=== PATIENT | male | born 1950 | race Caucasian/White ===

== ENCOUNTER → 2016-12-23 | Day surgery (SDC) | payer OTHER ==
--- NOTE | 2016-12-20 15:30 | MH ---
cc: AIDEN PABLO MD, ROHIT K. M.D. CROUCH, EUGENE M. MD DATE OF ADMISSION: 12/23/2016 ADMITTING DIAGNOSIS Herniated nucleus pulposus. HISTORY OF PRESENT ILLNESS This is a 66-year-old male who initially presented to our office on April 15, 2016 for evaluation of low back pain. After he was lifting scuba tanks which weighed about 60 pounds and turned he heard a pop and developed severe pain. He states he had an injection in his back at that time and over a period of time his pain improved but never resolved. He has progressively had increased pain. He has been through pain management and has had injections. He has also tried physical therapy. He has been seen for reevaluation more recently on 12/17/2016, stating that the pain management was not helping as much anymore. He therefore had a follow-up MRI scan which revealed a disc fragment that had extruded out. He also had an EMG and nerve conduction study of his lower extremities and he states that his neurologist informed him that he had nerve damage. He currently states his pain is in the right upper buttocks area radiating into the posterior thigh to the knee. Currently his pain is 2/10 but can go up to 7-8/10. He has also developed weakness in the right leg over the last two months and walks with a limp but has not fallen. He denies any bowel or bladder incontinence. PAST MEDICAL HISTORY Gastroesophageal reflux disease. MEDICATIONS Current medications: He takes Protonix p.o. daily. ALLERGIES TETRACYCLINE. PAST SURGICAL HISTORY None. FAMILY HISTORY His mother is at 90-year-old, had dementia. His father is at [id number]. His sister is at [id number] and had breast cancer. He has another sister who is [id number]. SOCIAL HISTORY He is a manager reimbursement. He is . He has two children. He occasionally smokes cigarettes about a half pack per day for 20 years. He drinks 0-2 drinks of alcohol daily. REVIEW OF SYSTEMS CONSTITUTIONAL: Denies any fever or chills. EYES, EARS, NOSE AND THROAT: No pharyngitis, exudates or bloody drainage from his nose. CARDIOVASCULAR: Denies chest pain or palpitations. RESPIRATORY: No cough or shortness of breath. GENITOURINARY: No dysuria or hematuria. MUSCULOSKELETAL: Positive for low back pain and leg pain with weakness in the leg. INTEGUMENTARY: No rashes or pruritus. NEUROLOGIC: No difficulty with speech or memory. GASTROINTESTINAL: No nausea, vomiting or abdominal pain. PSYCHIATRIC: Denies anxiety or depression symptoms. ENDOCRINE: No polyuria or polydipsia. HEMATOLOGIC: No bruising or bleeding tendencies. PHYSICAL EXAMINATION HEAD: Normocephalic, atraumatic. NECK: Supple. No carotid bruits heard on auscultation. LUNGS: Clear to auscultation bilaterally. HEART: Regular rate and rhythm. Normal S1, S2. ABDOMEN: Soft, nontender. Positive bowel sounds. SKIN: No cyanosis or erythema. MUSCULOSKELETAL: He has 5/5 strength in the lower extremities except his right hamstring is 4/5. He ambulates without any assistive devices but has an obvious limp because of weakness in the right leg. NEUROLOGIC: He is awake, alert and oriented. Cranial nerves II through XII are grossly intact. Speech is fluent. Comprehension is good. Left patella and right Achilles reflexes are diminished, otherwise his reflexes are 2+ in the lower extremities. DATA REVIEW Reviewed an MRI of the lumbar spine from November 08, 2016 which reveals significant L4-L5 disc degeneration with a grade I spondylolisthesis along with disc protrusion and facet arthropathy with disc herniation superiorly migrated. The herniated disc fragment is more recent and not seen previously on the right side of the L4 vertebral body. There is also L3-L4 disc protrusion noted. IMPRESSION A 66-year-old male with a chronic history of low back pain with worsening right L3 and L4 radiculopathy with subjective weakness from an L4-L5 large disc herniation extending to the right side superiorly migrated fragment along with degenerative disc disease and a grade I spondylolisthesis and facet arthropathy. He has failed conservative treatment measures including physical therapy and pain management and his symptoms continued to progress. PLAN We have discussed the treatment options in detail with the patient and he has failed conservative measures consisting of physical therapy and pain management and he is electing to proceed with surgical intervention. We have discussed a microdiscectomy versus a lumbar interbody fusion with pedicle screw fixation and the difference in each approach and the recovery time and hospital stay where discussed in great detail. The patient states that he wants to try the microdiscectomy procedure and if he does not obtain the results that he is looking for then pursue a lumbar fusion at a later date. The patient understands the procedure, the risk, benefit, alternative and recovery time. We have discussed the risks involved with surgery include but not limited to bleeding, infection, muscle weakness, voice hoarseness, difficulty swallowing, heart attack, stroke, blood clots, non-fusion, scar tissue formation, among others. The patient states that he would like to proceed with a microdiscectomy surgery stating that he currently does not want to undertake a surgery with a lot of recuperation and restrictions afterwards and therefore he has elected to proceed with a microdiscectomy. Dictated by: Leonel Benjamin PA-C MD STEPHANY Hassan/BT /2:59 PM /3:15 PM
[~2016-12-23] VITALS: Ht 175.3 cm; Wt 76.5 kg
[~2016-12-23] MED LIST: ALPR.5 PO; BUPIVACAINE/EPINEPHRINE 0.5% PF 30 ML VIAL ONE; CIAL5TAB PO; GELFOAM SIZE 100 ONE; HYDROmorphone HCL PF 2 MG/ML VIAL ONE; INSULIN HUMAN REGULAR 1,000 UNITS/10 ML VIAL SQ PRN; LACTATED RINGER'S 1000 ML IV SCH; METOPROLOL TARTRATE 25 MG TAB PO PRN; MIDAZOLAM HCL 2 MG/2 ML VIAL ONE; NEOSTIGMINE 3 MG/3 ML SYR IV ONE; NORC5TAB PO; ONDANSETRON HCL 4 MG/2 ML VIAL IV PUSH ONE; PANT20 PO; PROPOFOL 200 MG/20 ML AMP IV ONE; SODIUM CHLOR 0.9% 1000 ML INJ 1,000 ML IV SCH; SODIUM CHLOR 0.9% 250 ML INJ 250 ML ONE; SODIUM CHLORID 0.9% 500 ML IV SCH; THROMBIN (TOPICAL) 5,000 UNIT VIAL ONE; VANCOMYCIN HCL 1000 MG ON-CALL/NS 250 ML IV SCH; VANCOMYCIN HCL 1000 MG VIAL ONE; ZOLP10TA3 PO; fentaNYL CITRATE 250 MCG/5 ML AMP ONE; methylPREDNISolone ACETATE 40 MG/ML VIAL ONE
[2016-12-23 07:48] VITALS: BP 159/82; PULSE 56; RESP 20; TEMP 98.5; O2SAT 99
--- NOTE | 2016-12-23 10:05 | EKG ---
Date Performed: 12/23/2016 Time Performed: 06:54:27 PTAGE: 66 years EKG: SINUS BRADYCARDIA BORDERLINE ECG NO PREVIOUS TRACING DOCTOR: George Diaz Interpretating Date/Time 12/23/2016 10:03:08
--- NOTE | 2016-12-23 12:12 | PD.OP ---
Ken Ma M.D. Operative Report Date of Surgery: Dec 23, 2016 Preoperative Diagnosis: Intractable low back pain with right L4 and L5 radiculopathy; L3-4 disc herniation with inferior migration Postoperative Diagnosis: Same Procedure: Right L4 hemilaminotomy with L3-4 microdiscectomy; microsurgical technique Anesthesia: Gen. endotracheal by Klever Alvarado Surgeon: Jonah Roberts M.D. Collar Separator(s): Sharonda Bunn Operation and Findings: Following administration of general endotracheal anesthesia, patient received vancomycin 1 g intravenously. Sequential compression devices were placed for DVT prophylaxis. He was then turned in prone position on Faisal frame and the Darrius table and all pressure points adequately padded. The lumbar region was then shaved and prepped with a Betadine and ChloraPrep. Sterile draping undertaken with Ioban. Midline incision overlying the L4 level was then made after infiltrating the skin with 0.5% Marcaine with epinephrine solution. The skin incision was made extending down through the fascia and then using the subperiosteal plane on the right side the muscular attachments to the spinous process and lamina were detached. Intraoperative fluoroscopy was used for level confirmation and further dissection undertaken using microtechnique with microscope magnification. The right L4 lamina was then drilled out and the underlying ligamentum flavum also removed. There was some facet arthropathy noted in the medial portion of facet was also resected and the lateral recess decompressed. Epidural venous stasis which he with the bipolar cautery along with Gelfoam and thrombin and bone wax used at the laminotomy edges for hemostasis. The thecal sac was then gently retracted with a nerve root retractor and an extruded disc fragment was identified which was inferiorly migrated from the L3-4 disc space. Fragments were removed with pituitary forceps and the nerve root impingement along with thecal sac compression decompressed. The area was then copiously irrigated with vancomycin solution. The retractors removed and the muscle fascia proximal using 2-0 Vicryl interrupted stitches. 3-0 Vicryl subcuticular stitches were also placed in an interrupted fashion and planned skin closure was with Mastisol and Steri- Strips. A sterile dressing was then applied and the patient then turned in the supine position and extubated and taken to recovery room in stable condition. There were no intraoperative complications and all sponge and needle count was correct at the end of the procedure. Estimated blood loss about 50 ml. Jonah Roberts MD Dec 23, 2016 12:12
--- NOTE | 2016-12-23 12:35 | RADRPT ---
EXAM DATE/TIME: 12/23/2016 09:28 [facility] COMPARISON: No previous studies available for comparison. INDICATIONS : L4-L5 lumbar laminectomy. Level localization. MEDICAL HISTORY : None. SURGICAL HISTORY : None. ENCOUNTER: Initial ACUITY: 1 day PAIN SCORE: Non-responsive. LOCATION: Lumbar spine. FINDINGS: Single lateral spot fluoroscopic image obtained in the operating room during a procedure demonstrates instruments overlying the posterior elements at L4. CONCLUSION: Instruments overlie the L4 posterior elements. Andrew Bui MD on December 23, 2016 at 12:33 Board Certified Radiologist. This report was verified electronically.
[2016-12-23 13:20] VITALS: BP 150/92; PULSE 66; RESP 16; TEMP 96.5; O2SAT 98
== END | disposition home or self-care (01) ==
LOC: HSDC 06:10
PROVIDERS: ATTEND Neurological Surgery
DX: M51.16 Intervertebral disc disorders with radiculopathy, lumbar region (principal); M43.16 Spondylolisthesis, lumbar region; M46.90 Unspecified inflammatory spondylopathy, site unspecified; K21.9 Gastro-esophageal reflux disease without esophagitis; R94.31 Abnormal electrocardiogram [ECG] [EKG]
CPT/HCPCS: 00630; 63030; 72020; 76000; 93005; J1030; J1170; J2250; J2405; J2710; J3010; J3370; J7050; J7120

== ENCOUNTER → 2017-05-01 | Day surgery (SDC) | payer OTHER ==
[~2017-05-01] VITALS: Ht 175.3 cm; Wt 77.2 kg
[~2017-05-01] MED LIST changes: -BUPIVACAINE/EPINEPHRINE 0.5% PF 30 ML VIAL ONE; +CHLORHEXIDINE GLUCONATE 2 % 1 PACK (2 CLOTHS) TOPICAL PRN; +CYCLOPENTOLATE HCL 1% OPHT SOLN 2 ML BTL ONE; +FLURBIPROFEN 0.03% OPHT SOLN 2.5 ML BTL ONE; -GELFOAM SIZE 100 ONE; -HYDROmorphone HCL PF 2 MG/ML VIAL ONE; +LACTATED RINGER'S 1000 ML IV PRN; -LACTATED RINGER'S 1000 ML IV SCH; +LIAL1.2T PO; +LIDOCAINE HCL 1% PF 30 ML VIAL ONE; +LIDOCAINE HCL 2% JELLY 5 ML SYRINGE ONE; +LIDOCAINE HCL 2% JELLY 5 ML SYRINGE TOPICAL ONE; -MIDAZOLAM HCL 2 MG/2 ML VIAL ONE; -NEOSTIGMINE 3 MG/3 ML SYR IV ONE; -ONDANSETRON HCL 4 MG/2 ML VIAL IV PUSH ONE; +PHENYLEPHRINE HCL 10% OPTH SOLN 5 ML BTL ONE; +POVIDONE IODINE 5% (ANTISEPSIS KIT) 4 APPLICATIONS EACH NARE PRN; +PROPARACAINE HCL 0.5% OPHT SOLN 15 ML BTL LEFT EYE ONE; +PROPARACAINE HCL 0.5% OPHT SOLN 15 ML BTL ONE; -PROPOFOL 200 MG/20 ML AMP IV ONE; +QUES4POW2 PO; -SODIUM CHLOR 0.9% 1000 ML INJ 1,000 ML IV SCH; -SODIUM CHLOR 0.9% 250 ML INJ 250 ML ONE; +SODIUM CHLORID 0.9% 500 ML IV PRN; -SODIUM CHLORID 0.9% 500 ML IV SCH; -THROMBIN (TOPICAL) 5,000 UNIT VIAL ONE; +TOBRAMYCIN/DEXAMETHASONE OPTH OINT 3.5 GM TUBE ONE; +TROPICAMIDE 1% OPHT SOLN 15 ML BTL ONE; -VANCOMYCIN HCL 1000 MG ON-CALL/NS 250 ML IV SCH; -VANCOMYCIN HCL 1000 MG VIAL ONE; -fentaNYL CITRATE 250 MCG/5 ML AMP ONE; -methylPREDNISolone ACETATE 40 MG/ML VIAL ONE
[2017-05-01 07:02] VITALS: BP 152/89; PULSE 62; RESP 18; TEMP 97.8; O2SAT 96
[2017-05-01] MEDS: PHENYLEPHRINE HCL 10% OPTH SOLN 5 ML BTL LEFT EYE SCH ×4 (07:08→07:23)
[2017-05-01] MEDS: FLURBIPROFEN 0.03% OPHT SOLN 2.5 ML BTL LEFT EYE SCH ×4 (07:08→07:23)
[2017-05-01] MEDS: CYCLOPENTOLATE HCL 1% OPHT SOLN 2 ML BTL LEFT EYE SCH ×4 (07:08→07:23)
[2017-05-01] MEDS: TROPICAMIDE 1% OPHT SOLN 15 ML BTL LEFT EYE SCH ×4 (07:08→07:23)
[2017-05-01 09:32] VITALS: BP 139/86; PULSE 62; RESP 16; TEMP 97.1; O2SAT 96
--- NOTE | 2017-05-01 16:00 | MP ---
cc: CLEM GILLIAM M.D. DATE OF SURGERY: 05/01/2017. [facility] NUMBER: [id number] PREOPERATIVE DIAGNOSIS: Visually significant cataract left eye. POSTOPERATIVE DIAGNOSIS: Visually significant cataract left eye. OPERATION: Phacoemulsification with posterior chamber lens implantation, left eye. SURGEON: Clem Gilliam MD ANESTHESIA: Topical with MAC. COMPLICATIONS: None. DESCRIPTION OF THE PROCEDURE IN DETAIL: After informed consent was obtained, the patient was brought into the operative suite and placed on appropriate monitors by the anesthesia service. The patient had been given dilating drops and topical lidocaine gel in the holding area. The patient's operative eye was then prepped and draped in the usual sterile fashion. A wire lid speculum was placed. Further 2% lidocaine was then dropped on the cornea prior to beginning the procedure. A paracentesis incision was made in the peripheral cornea with a 1 mm avani keratome. The anterior chamber was filled with viscoelastic. The anterior chamber was then entered through a stepped, clear corneal incision using a sharp 3 mm avani keratome. A circular tear capsulorrhexis was then made with a bent needle cystitome. Following hydrodissection of the lens nucleus with balance saline, phacoemulsification of the nucleus was performed using a modified chopping technique. The remaining cortex was removed with irrigation/aspiration. The prior two procedures were both performed using the handpieces of the [employer] phaco unit. The capsular bag was then filled with viscoelastic. The intraocular lens was then injected into the capsular bag and positioned. The type of intraocular lens and its power can be found elsewhere in this chart. The remaining viscoelastic was then removed from the anterior chamber with the IA handpiece. The anterior chamber was reformed with balanced saline. The wound was then closed securely with stromal hydration. It was found to be watertight to an intraocular pressure of at least 30 mmHg by palpation. A small amount of balanced salt solution was then removed through the paracentesis site and the intraocular pressure at the end of the case was approximately 20 by palpation. All drapes were then removed. TobraDex ointment was then placed in the eye, which was closed beneath a semi-pressure patch dressing. The patient tolerated this procedure well and left the operating room awake and alert. The patient is to follow-up in my office in the morning. Clem MD CHERRI Franklin/BRAYAN /10:05 AM /4:03 PM
== END | disposition home or self-care (01) ==
LOC: PHSDC 06:23
PROVIDERS: ATTEND Optometrist Occupational Vision
DX: H25.13 Age-related nuclear cataract, bilateral (principal); H40.053 Ocular hypertension, bilateral; H40.003 Preglaucoma, unspecified, bilateral; H43.811 Vitreous degeneration, right eye; E78.5 Hyperlipidemia, unspecified
CPT/HCPCS: 00142; 66984; J7040; V2632